=== PATIENT | female | born 1945 | race Caucasian/White ===

== ENCOUNTER 2023-01-04 06:17 | Emergency (ER) | payer MEDICARE, BC, SELFPAY ==
[2023-01-04] VITALS (11 sets, daily range): BP systolic 147–172; BP diastolic 64–92; PULSE 48–56; RESP 18; TEMP 36.6; O2SAT 94–100; BMI 28.0
--- NOTE | 2023-01-04 06:54 | ED.NURSE ---
Blood collected and IV start infiltrated. SL removed intact.
[2023-01-04 06:57] LABS: Troponin, Point-of-Care* 0.01 ng/ml (0.01-0.04)
--- NOTE | 2023-01-04 07:02 | ED.NURSE ---
Report to SUGEY Jett, who accepts transfer of care.
[2023-01-04 07:13] LABS: Hemoglobin* 12.7 gm/dL (12.0-16.0)
[2023-01-04 07:22] LABS: Chloride* 102 mmol/L (96-114)
[2023-01-04 07:23] LABS: Potassium* 4.2 mmol/L (3.6-5.1); Sodium* 137 mmol/L (135-149)
[2023-01-04 07:25] LABS: Creatinine* 0.6 mg/dL (0.5-1.5); Est. Creatinine Clearance* 35.55; Estimated Glomerular Filt Rate 92 ml/min
[2023-01-04 07:26] LABS: Blood Urea Nitrogen* 23 mg/dL (7-30); Calcium* 9.1 mg/dL (8.4-10.6); Carbon Dioxide* 27 mmol/L (20-32); Glucose* 147 mg/dL (60-115)
[2023-01-04 07:31] LABS: D Dimer Quantitative* 0.56 ug/ml (0.00-0.50)
[2023-01-04 07:38] LABS: NT Pro B Type NatriureticPept* 63 pg/mL; Troponin I* < 0.01 ng/mL (0.01-0.04)
--- NOTE | 2023-01-04 10:29 | ED.GENADULT ---
HPI - General Adult General Chief complaint: Chest Pain Stated complaint: Heart pain Time Seen by Provider: 01/04/23 06:35 History of Present Illness HPI narrative: awoke from sleep around 0400 with pain 5 or 6 out of 10, also had pain in jaw at this time. patient has had this same pain the last 2 nights that woke her from sleep. no hx of heart problems . patient does take BP meds that she states she has been taking as prescribed. currently no pain, states the pain just went away on its own 77-year-old woman presenting to the emergency department with complaint of upper chest discomfort or pressure that woke her from sleep about 2-1/2 hours prior to this conversation. Then started to feel it in her jaw and gestures to her right jaw area. This became more concerning and thought she should be evaluated. Since has fully resolved. In my review of record I see was seen for similar 2 years ago with unremarkable initial workup. She was recommended to follow-up and take an aspirin. Follow-up did not occur. Does not sound as though she has had these symptoms to any significant degree since. Is not experiencing any exertional pain or unusual fatigue. Is looking forward to traveling with her grandson in fact later today. Wants to be sure she can make this trip. Does not typically have heartburn. No associated shortness of breath or diaphoresis. No nausea. Related Data Home Medications Medication Instructions Recorded Confirmed hydrochlorothiazide 25 mg tablet 25 mg PO DAILY 01/04/23 01/04/23 losartan 25 mg tablet 25 mg PO DAILY 01/04/23 01/04/23 Allergies Allergy/AdvReac Type Severity Reaction Status Date / Time bee venom protein (honey bee) Allergy Severe Anaphylaxis Verified 01/04/23 06:51 Penicillins Allergy Intermediate Headache Verified 01/04/23 06:51 Review of Systems Status of ROS: Reports: 6 or more systems reviewed and unremarkable except as noted in History and below [facility] Medical History Essential hypertension ?I10 - Essential (primary) hypertension (ICD-10) Hypercholesteremia ?E78.00 - Pure hypercholesterolemia, unspecified (ICD-10) Osteoporosis ?M81.0 - Age-related osteoporosis without current pathological fracture (ICD-10) Presbyopia ?H52.4 - Presbyopia (ICD-10) Surgical History H/O umbilical hernia repair ?Z98.890 - Other specified postprocedural states (ICD-10) ?Z87.19 - Personal history of other diseases of the digestive system (ICD-10) History of tonsillectomy ?Z90.89 - Acquired absence of other organs (ICD-10) Hx of cholecystectomy ?Z90.49 - Acquired absence of other specified parts of digestive tract (ICD-10) Social History Smoking Status: Never smoker Do you use any of these nicotine containing products: None Second hand tobacco smoke exposure: No How often do you have a drink containing alcohol: never AUDIT-C Alcohol total score: 0 Non-prescribed substance use: denies use service: No Exam Narrative: Exam Narrative: Pleasant. NAD. Breathing easily. Discomfort is not elicited with head rotation. Cranial nerves 2-12 intact. Moving all extremities without difficulty. No edema. Well perfused. Dentition in good repair mouth is moist. Heart is in a regular rhythm but bradycardic rate. Neck is supple without lymphadenopathy. No discomfort to palpation over the anterior chest. Lungs are clear. Abdomen is little overweight soft and nontender. Const: Vital Signs, click to edit/add: Vital Signs - 24 hr 01/04/23 06:21 01/04/23 07:15 01/04/23 07:16 Temperature 98 F Pulse Rate 51 L 53 L Pulse Rate [Pulse Oximeter] 56 L Respiratory Rate 18 Blood Pressure 154/67 H Blood Pressure [Le ft Upper Arm] 172/92 H Pulse Oximetry 97 97 96 Oxygen Delivery Me thod Room Air 01/04/23 07:30 01/04/23 07:31 01/04/23 07:32 Temperature Pulse Rate 53 L 53 L 53 L Pulse Rate [Pulse Oximeter] Respiratory Rate Blood Pressure 165/73 H Blood Pressure [Le ft Upper Arm] Pulse Oximetry 100 95 95 Oxygen Delivery Me thod 01/04/23 07:46 01/04/23 08:00 01/04/23 08:01 Temperature Pulse Rate 50 L 48 L 50 L Pulse Rate [Pulse Oximeter] Respiratory Rate Blood Pressure 153/64 H 155/66 H Blood Pressure [Le ft Upper Arm] Pulse Oximetry 94 94 94 Oxygen Delivery Me thod 01/04/23 08:17 01/04/23 08:31 Temperature Pulse Rate 53 L Pulse Rate [Pulse Oximeter] Respiratory Rate Blood Pressure 147/78 H 150/75 H Blood Pressure [Le ft Upper Arm] Pulse Oximetry 97 Oxygen Delivery Me thod Course Vital Signs Vital signs: Initial Vital Signs Temperature 98 F 01/04/23 06:21 Temperature Source Temporal Artery Scan 01/04/23 06:21 Pulse Rate 56 L 01/04/23 06:21 Respiratory Rate 18 01/04/23 06:21 Blood Pressure 172/92 H 01/04/23 06:21 Blood Pressure Mean 118 H 01/04/23 06:21 Blood Pressure Position Supine 01/04/23 06:21 Pulse Oximetry 97 01/04/23 06:21 Oxygen Delivery Method Room Air 01/04/23 06:21 Vital Signs Temperature 98 F 01/04/23 06:21 Pulse Rate 56 L 01/04/23 06:21 Respiratory Rate 18 01/04/23 06:21 Blood Pressure 172/92 H 01/04/23 06:21 Pulse Oximetry 97 01/04/23 06:21 Oxygen Delivery Method Room Air 01/04/23 06:21 Temperature 98 F 01/04/23 06:21 Pulse Rate 53 L 01/04/23 08:17 Respiratory Rate 18 01/04/23 06:21 Blood Pressure 150/75 H 01/04/23 08:31 Pulse Oximetry 97 01/04/23 08:17 Oxygen Delivery Method Room Air 01/04/23 06:21 Medical Decision Making [facility] Narrative Medical decision making narrative: The initial evaluation looking for evidence of ischemic disease would be in order. Could be pulmonary embolus but symptoms do not persist. Does not appear to be infectious like pneumonia. Heartburns possibility. No pain continuing to suggest gallbladder disease but certainly could have passed a stone I suppose. Dysrhythmia also potential. Laboratory evaluation is unremarkable. No unusual rhythms on cardiac monitoring. She is anxious to leave after 1st round of labs. See patient discharge plan. Lab Data Labs: Lab Results 01/04/23 Range/Units 06:35 Hgb 12.7 (12.0-16.0) gm/dL D-Dimer Quant (PE/DVT) 0.56 H (0.00-0.50) ug/ml Sodium 137 (135-149) mmol/L Potassium 4.2 (3.6-5.1) mmol/L Chloride 102 (96-114) mmol/L Carbon Dioxide 27 (20-32) mmol/L BUN 23 (7-30) mg/dL Creatinine 0.6 (0.5-1.5) mg/dL Estimated Creat Clear 35.55 Estimated GFR 92 ml/min Glucose 147 H (60-115) mg/dL Calcium 9.1 (8.4-10.6) mg/dL Troponin I < 0.01 L (0.01-0.04) ng/mL NT-Pro-B Natriuret Pep 63 pg/mL POC Troponin I 0.01 (0.01-0.04) ng/ml ECG Data Attestation: I personally reviewed and interpreted this ECG as follows: (Sinus bradycardia rate of 52 no acute ischemic changes evident.) Discharge Plan Discharge Clinical Impression: Atypical chest pain Patient Disposition: Home, Self-Care Condition: Improved Additional Instructions: We have not been able to identify anything that is the source of your pain/pressure here today. Your workup is normal and therefore reassuring. I do think though you should follow-up with your primary care provider to do further evaluation as recommended last time. I believe you were also recommended for a low-dose aspirin. Otherwise return for persistent and increased pain, associated with shortness of breath or nausea, diaphoresis. You can continue your usual activities at this time. Safe travels. Prescriptions: No Action losartan 25 mg tablet 25 mg PO DAILY hydrochlorothiazide 25 mg tablet 25 mg PO DAILY Follow Up/Referrals: Russell Maurer MD [Primary Care Provider] - Stand Alone Forms: [facility] Info Instructions
== END 2023-01-04 09:09 | disposition home or self-care (01) ==
PROVIDERS: Emergency Provider Family Medicine; PCP Family Medicine
DX: R07.89 Other chest pain (principal)
CPT/HCPCS: 36415; 80048; 83880; 84484; 85018; 85379; 99283; 99284